=== PATIENT | male | born 1995 | race Two or more races ===

== ENCOUNTER 2018-10-26 05:52 | Emergency (ER) | payer OTHER ==
[~2018-10-26] VITALS: Ht 177.8 cm; Wt 69.4 kg
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
[2018-10-26] MEDS ORDERED: ACETAMINOPHEN ES 500 MG TABLET ONE (06:19)
[2018-10-26] MEDS ORDERED: IBUPROFEN 600 MG TABLET PO ONE ×2 (06:19→06:30)
[2018-10-26] MEDS ORDERED: ACETAMINOPHEN ES 500 MG TABLET PO ONE (06:30)
[2018-10-26 07:39] VITALS: BP 140/88
== END 2018-10-26 07:40 | disposition home or self-care (01) ==
LOC: ER 05:53
DX: S13.4XXA Sprain of ligaments of cervical spine, initial encounter (principal); V49.59XA Passenger injured in collision with other motor vehicles in traffic accident, initial encounter; Y93.89 Activity, other specified; Y92.89 Other specified places as the place of occurrence of the external cause; Y99.8 Other external cause status
CPT/HCPCS: 70450; 72125; 99284; A4606